=== PATIENT | female | born 1940 | race Caucasian/White ===

== ENCOUNTER 2019-03-17 07:10 | Day surgery (SDC) | payer OTHER ==
[2019-03-17 07:52] VITALS: BMI 29.2
[2019-03-17 08:59] VITALS: TEMP 98.3
[2019-03-17 09:20] VITALS: PULSE 69
[2019-03-17 13:00] VITALS: BP 145/65
--- NOTE | 2019-03-18 17:59 | PATH ---
Surgical Pathology Report Patient Name: JARRETT العلي [facility]. Rec. #: [id number] /Age/Gender: 1940 (Age: 78) / F Account: [id number] Location: [facility]SU-ENDOSCOPY Taken: 03/17/2019 Received: 03/17/2019 Reported: 03/18/2019 Physicians: Kane Chung M.D. Specimen(s) Received A: ANTRUM B: SIGMOID POLYP C: HEPATIC FLEXURE POLYP Clinical History Anemia Postoperative diagnosis: Gastritis, colon polyps Final Diagnosis A. STOMACH, ANTRUM, BIOPSY: GASTRIC ANTRAL MUCOSA WITH MODERATE TO SEVERE CHRONIC ACTIVE GASTRITIS. IMMUNOHISTOCHEMICAL STAIN FOR H. PYLORI IS POSITIVE (FEW). B. SIGMOID POLYP, POLYPECTOMY: TUBULAR ADENOMA. NO HIGH GRADE DYSPLASIA IDENTIFIED. C. COLON, HEPATIC FLEXURE, POLYP, POLYPECTOMY: TUBULAR ADENOMA. Electronically Signed Natali Ken M.D. Gross Description A. Received in formalin, labeled "antrum" are 2 escobar, irregular portions of soft tissue measuring 0.3 and 0.4 cm. in greatest dimension. The specimens are submitted in toto in one cassette. B. Received in formalin, labeled "sigmoid polyp" is a escobar, irregular portion of polypoid soft tissue measuring 1.2 x 0.7 x 0.5 cm. in greatest dimension. The base of the polyp is inked in blue. The specimen is serially sectioned and entirely submitted in one cassette. C. Received in formalin, labeled "hepatic flexure polyp" are 3 escobar, irregular portions of soft tissue ranging in size from 0.1-0.2 cm. in greatest dimension. The specimens are submitted in toto in one cassette. MLSZ/03/17/2019 sanml/03/17/2019
== END 2019-03-17 09:45 | disposition home or self-care (01) ==
LOC: JASU-ENDO 07:10
PROVIDERS: ATTEND Internal Medicine Gastroenterology
PROC: 0DBL8ZX Excision of Transverse Colon, Via Natural or Artificial Opening Endoscopic, Diagnostic (ICD-10-PCS; 2019-03-17)
PROC: 0DB68ZX Excision of Stomach, Via Natural or Artificial Opening Endoscopic, Diagnostic (ICD-10-PCS; 2019-03-17)
PROC: 0DBN8ZX Excision of Sigmoid Colon, Via Natural or Artificial Opening Endoscopic, Diagnostic (ICD-10-PCS; principal; 2019-03-17 08:00)
DX: Z12.11 Encounter for screening for malignant neoplasm of colon (principal); D64.9 Anemia, unspecified; K57.30 Diverticulosis of large intestine without perforation or abscess without bleeding; D12.6 Benign neoplasm of colon, unspecified; D12.5 Benign neoplasm of sigmoid colon; K29.50 Unspecified chronic gastritis without bleeding
CPT/HCPCS: 88305-TC; 88342-TC

== ENCOUNTER 2023-08-08 04:27 | Day surgery (SDC) | payer OTHER ==
[2023-08-01 16:11] VITALS: BMI 30.4
[2023-08-08 09:56] VITALS: TEMP 97.6
[2023-08-08 10:32] VITALS: BP 113/56; PULSE 63; RESP 21
== END 2023-08-08 11:16 | disposition home or self-care (01) ==
LOC: JASU-ENDO 04:27
PROVIDERS: ATTEND Internal Medicine Gastroenterology
PROC: 0DB98ZX Excision of Duodenum, Via Natural or Artificial Opening Endoscopic, Diagnostic (ICD-10-PCS; 2023-08-08)
PROC: 0DB78ZX Excision of Stomach, Pylorus, Via Natural or Artificial Opening Endoscopic, Diagnostic (ICD-10-PCS; 2023-08-08)
PROC: 0DB68ZX Excision of Stomach, Via Natural or Artificial Opening Endoscopic, Diagnostic (ICD-10-PCS; 2023-08-08)
PROC: 0DJD8ZZ Inspection of Lower Intestinal Tract, Via Natural or Artificial Opening Endoscopic (ICD-10-PCS; principal; 2023-08-08 09:30)
DX: Z12.11 Encounter for screening for malignant neoplasm of colon (principal); K57.30 Diverticulosis of large intestine without perforation or abscess without bleeding; D50.9 Iron deficiency anemia, unspecified; Z86.010 Personal history of colon polyps; K29.80 Duodenitis without bleeding; K29.50 Unspecified chronic gastritis without bleeding
CPT/HCPCS: 43239; G0105; 88305-TC; 88342-TC